=== PATIENT | female | born 1930 | race Caucasian/White ===

== ENCOUNTER 2018-06-19 06:22 | Emergency (ER) | payer MEDICARE ==
[~2018-06-19] VITALS: Ht 170.2 cm; Wt 79.4 kg
--- NOTE | 2018-06-19 07:32 | Diagnostic Imaging Report ---
History:Fall Comparison studies:None Technique: Axial images were obtained from the skull base to the vertex. Coronal and sagittal images reconstructed from the axial data. Intravenous contrast: None Dose modulation, iterative reconstruction, and/or weight based adjustment of the mA/kV was utilized to reduce the radiation dose to as low as reasonably achievable. Findings: Scalp/skull: No abnormalities. Extra-axial spaces: No masses. No fluid collections. Brain sulci: Mildly prominent. Ventricles: Mild compensatory dilatation. No hydrocephalus. Parenchyma: Scattered small hypodensities in the supratentorial white matter are small vessel ischemic changes. 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 Cortical-based hypodensity at the right inferior frontal gyrus and left inferior parietal lobule, with associated volume loss, secondary to remote insult. No masses, hemorrhage or acute cortical vascular insults. Sellar/suprasellar region: No abnormalities. Craniocervical junction: Patent foramen magnum. No Chiari one malformation. Incidental findings: Atherosclerotic calcifications in the carotid siphons and left vertebral lateral . Impression: No acute abnormalities. Chronic findings: 1. Mild generalized volume loss. 2. Mild supratentorial white matter small vessel ischemic changes. 3. Remote insult at the right inferior frontal gyrus and left inferior parietal lobule. Signed by: DR Danilo Meza M.D. on 06/19/2018 7:29 AM
--- NOTE | 2018-06-19 07:33 | Diagnostic Imaging Report ---
History: Fall Comparison studies: None Technique: Axial images were obtained through the cervical region. Coronal and sagittal images reconstructed from the axial data. Intravenous contrast: None Dose modulation, iterative reconstruction, and/or weight based adjustment of the mA/kV was utilized to reduce the radiation dose to as low as reasonably achievable. Findings: Atlantoaxial articulation: Mild degenerative changes with without acute abnormality Alignment: Straightening of the normal lordosis No scoliosis. Cervicomedullary junction: No abnormalities. Patent foramen magnum. Soft tissues: No gross abnormalities. Vertebrae: No fractures, neoplasm or infection. Degenerative changes: Uncinate process hypertrophy at the mid cervical spine results in mild right foraminal narrowing at C3-4 and C4-5. Left facet hypertrophy at C2-3, without significant canal stenosis or foraminal narrowing Decreased intervertebral space from C3 through C7 with sclerotic changes at C3-4. Grossly patent canal Retropharyngeal course of the bilateral internal carotid arteries with atherosclerotic plaque at the bulbs. Elongated small opacities at the bilateral chest apices, secondary to scarring IMPRESSION: 1. No acute cervical abnormality. 2. Cannot exclude ligamentous or spinal cord injury. Signed by: DR Danilo Meza M.D. on 06/19/2018 7:41 AM
--- NOTE | 2018-06-19 08:01 | Diagnostic Imaging Report ---
Exam: Left hand radiographs-3 views History: Status post fall with left hand swelling. Comparison: None. Findings: Lateral radiograph is limited secondary to the patient's inability to spread the fingers. There is an acute, minimally displaced, comminuted fracture at the base of the fifth finger proximal phalanx. There is surrounding soft tissue edema. There are severe degenerative changes of the trapezius scaphoid joint. There are moderate degenerative changes at the first carpometacarpal with mild radial subluxation of the thumb in relation to the trapezium. There are moderate degenerative changes with mild radial subluxation of the fifth finger distal phalanx in relation to the middle phalanx. Impression: Acute, minimally displaced comminuted fracture of the base of the fifth finger proximal phalanx. 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 Likely chronic subluxation of the base of the thumb and fifth finger distal phalanx. Signed by: Dr. Yesica No MD on 06/19/2018 7:58 AM
--- NOTE | 2018-06-19 08:21 | NUR ---
UPDATED FAMILY AND PT FOR PLAN OF CARE.
--- NOTE | 2018-06-19 08:59 | NUR ---
stapled by to back of head. tolerated well. done by
--- NOTE | 2018-06-19 09:07 | NUR ---
gutter/ulna splint by
== END 2018-06-19 11:23 | disposition home or self-care (01) ==
LOC: ER 06:22
DX: S01.01XA Laceration without foreign body of scalp, initial encounter (principal); S62.647A Nondisplaced fracture of proximal phalanx of left little finger, initial encounter for closed fracture; S16.1XXA Strain of muscle, fascia and tendon at neck level, initial encounter; W01.0XXA Fall on same level from slipping, tripping and stumbling without subsequent striking against object, initial encounter; Y92.128 Other place in nursing home as the place of occurrence of the external cause; I10 Essential (primary) hypertension; J44.9 Chronic obstructive pulmonary disease, unspecified; I48.91 Unspecified atrial fibrillation
CPT/HCPCS: 70450; 72125; 99284